=== PATIENT | female | born 1970 | race Asian ===

== ENCOUNTER 2019-07-25 08:12 | Emergency (ER) | payer OTHER ==
[~2019-07-25] VITALS: Ht 152.4 cm; Wt 54.4 kg
[2019-07-25 08:12] VITALS: BP_SYST 129
--- NOTE | 2019-07-25 08:15 | NUR ---
placed in hallway. Dr Bennett examining pt
--- NOTE | 2019-07-25 09:12 | NUR ---
Patient given written and verbal discharge instructions and verbalizes understanding. ER MD discussed with patient the results and treatment provided. Patient in stable condition. ID arm band removed. Rx of none given. Patient educated on pain management and to follow up with PMD. Pain Scale 0/10 Opportunity for questions provided and answered. Medication side effect fact sheet provided.
[2019-07-25 09:13] VITALS: BP_SYST 129
== END 2019-07-25 09:13 | disposition home or self-care (01) ==
LOC: SED 08:12
DX: S66.302A Unspecified injury of extensor muscle, fascia and tendon of right middle finger at wrist and hand level, initial encounter (principal); W23.0XXA Caught, crushed, jammed, or pinched between moving objects, initial encounter; Y93.89 Activity, other specified; Y92.89 Other specified places as the place of occurrence of the external cause; Y99.8 Other external cause status
CPT/HCPCS: 73140-TC; 99283